=== PATIENT | female | born 1985 | race Two or more races ===

== ENCOUNTER 2022-11-09 01:07 | Inpatient (IN) | payer BC ==
[2022-11-09 01:32] VITALS: BMI 26.2
[2022-11-09] MEDS ORDERED: Lidocaine 1% (PF) 30 ML VIAL SC PRN (02:09)
[2022-11-09] MEDS ORDERED: Ondansetron PF 4 MG/2 ML Vial IVP PRN ×3 (02:09→20:46)
[2022-11-09] MEDS ORDERED: Diphenoxylate HCl/Atropine Tablet PO PRN (02:09)
[2022-11-09] MEDS ORDERED: Tranexamic Acid 1,000 MG/10 ML VIAL IVP PRN (02:09)
[2022-11-09] MEDS ORDERED: Methylergonovine 0.2 MG/ML VIAL IM PRN (02:09)
[2022-11-09] MEDS ORDERED: Carboprost 250 MCG/ML AMP IM PRN (02:09)
[2022-11-09] MEDS ORDERED: hydrALAZINE 20 MG/ML VIAL SLOW IVP PRN ×2 (02:09→20:46)
[2022-11-09] MEDS ORDERED: Promethazine HCl 25 MG/ML VIAL IM PRN ×2 (02:09→04:12)
[2022-11-09] MEDS ORDERED: Fentanyl 100 MCG/2 ML VIAL SLOW IVP PRN (02:09)
[2022-11-09] MEDS ORDERED: Misoprostol 200 MCG TAB PR PRN (02:09)
[2022-11-09] MEDS ORDERED: NS w/ Oxytocin 30 units 500 ML IV SCH ×2 (02:15)
[2022-11-09] MEDS: Lactated Ringer's 1,000 ML IV SCH ×2 (03:10→04:08)
[2022-11-09 03:16] LABS: Hemoglobin 11.4 g/dL (12.0-15.5); Mean Corpuscular HGB CONC 32.6 g/dL (32.0-36.0); Mean Corpuscular Hemoglobin 28.3 pg (27.0-33.0); Mean Corpuscular Volume 86.8 fl (81.6-98.3); Mean Platelet Volume 10.9 fl (7.4-10.4); Platelet Count 285 10x3/uL (150-450); RBC Distribution Width 14.9 % (11.5-14.5); Red Blood Cell (RBC) Count 4.03 10x6/uL (3.90-5.03); White Blood Cell (WBC) Count 9.7 10x3/uL (3.5-10.5)
[2022-11-09] MEDS ORDERED: Fentanyl 2 mcg/Bup 0.1% Cadd 100 ML ONE (03:36)
[2022-11-09 03:49] LABS: HBSAg Index 0.16 S/CO (0-0.99); Hep B Surf Ag - L&D Non-Reactive S/CO (NonReactive)
[2022-11-09 03:51] LABS: Syphilis Antibody Nonreactive (Nonreactive); Syphilis Antibody Index 0.05 S/CO (<1.00 Non-Reactive)
[2022-11-09] MEDS ORDERED: Naloxone HCl 0.4 mg/ml Vial IVP PRN ×2 (04:12)
[2022-11-09] MEDS ORDERED: Moisturizing Cream (Eucerin) 113 GM JAR TOP PRN (04:12)
[2022-11-09] MEDS ORDERED: diphenhydrAMINE 50 MG/ML VIAL IVP PRN (04:12)
[2022-11-09] MEDS ORDERED: ePHEDrine Sulfate 50 MG/10 ML VIAL SLOW IVP PRN (04:12)
[2022-11-09] MEDS ORDERED: Lactated Ringer's 500 ML IV PRN (04:12)
[2022-11-09] MEDS ORDERED: Fentanyl 2 mcg/Bupivacaine 0.1% Cassette 100 ML EPIDURAL SCH (04:15)
[2022-11-09] MEDS ORDERED: Communication Order-Pharmacy FS SCH (04:15)
[2022-11-09] MEDS ORDERED: Bupivacaine 0.25% HCL 30 ML VIAL ONE (08:00)
[2022-11-09] MEDS: Acetaminophen 325 MG TAB PO PRN ×2 (08:53→18:03)
[2022-11-09] MEDS ORDERED: Milk Of Magnesia 30 ML UDCUP PO PRN (20:46)
[2022-11-09] MEDS ORDERED: Benzocaine-Menthol 82.5 ML CAN TOP PRN (20:46)
[2022-11-09] MEDS ORDERED: Preparation H Ointment 28 GM TUBE PR PRN (20:46)
[2022-11-09] MEDS ORDERED: Boostrix 0.5 ML (Tdap) VIAL (>/=7 yrs of age) IM ONE (20:46)
[2022-11-09] MEDS ORDERED: HYDROcodone/Acetaminophen 5/325 mg Tablet PO PRN (20:46)
[2022-11-09] MEDS ORDERED: diphenhydrAMINE 25 MG CAP PO PRN (20:46)
[2022-11-09] MEDS ORDERED: Bisacodyl 10 MG SUPP PR PRN (20:46)
[2022-11-09] MEDS: Ibuprofen 800 MG TAB PO SCH (21:27)
[2022-11-09] MEDS: Docusate 100 MG CAP PO SCH (21:27)
[2022-11-10] MEDS: Ibuprofen 800 MG TAB PO SCH ×3 (05:13→21:08)
[2022-11-10] MEDS: Lactated Ringer's 1,000 ML IV SCH (07:44)
[2022-11-10] MEDS: Ferrous Sulfate 325 MG TAB PO SCH ×2 (07:44→13:50)
[2022-11-10] MEDS: Prenatal Vitamin 1 TAB PO SCH (08:17)
[2022-11-10] MEDS: Docusate 100 MG CAP PO SCH ×2 (08:17→21:08)
[2022-11-10] MEDS: HYDROcodone/Acetaminophen 5/325 mg Tablet PO PRN ×2 (13:17→18:17)
[2022-11-11] MEDS: HYDROcodone/Acetaminophen 5/325 mg Tablet PO PRN ×2 (02:23→10:14)
[2022-11-11] MEDS: Ibuprofen 800 MG TAB PO SCH ×2 (05:15→13:11)
[2022-11-11] MEDS: Ferrous Sulfate 325 MG TAB PO SCH ×2 (07:00→07:01)
[2022-11-11] MEDS: Prenatal Vitamin 1 TAB PO SCH (08:07)
[2022-11-11] MEDS: Docusate 100 MG CAP PO SCH (08:07)
[2022-11-11 08:10] VITALS: BP 110/51; TEMP 98.6
== END 2022-11-11 13:20 | disposition home or self-care (01) | DRG 806 ==
LOC: CSHLD/OP 01:07 → CSHLD 03:22 → CSHPP 20:04
PROVIDERS: ADMIT Student in an Organized Health Care Education/Training Program; ATTEND Student in an Organized Health Care Education/Training Program
PROC: 10E0XZZ Delivery of Products of Conception, External Approach (ICD-10-PCS; principal; 2022-11-09)
PROC: 0KQM0ZZ Repair Perineum Muscle, Open Approach (ICD-10-PCS; 2022-11-09)
DX: O42.02 Full-term premature rupture of membranes, onset of labor within 24 hours of rupture (principal); Z37.0 Single live birth; Z3A.40 40 weeks gestation of pregnancy; O70.1 Second degree perineal laceration during delivery; O98.52 Other viral diseases complicating childbirth; B00.9 Herpesviral infection, unspecified; O77.0 Labor and delivery complicated by meconium in amniotic fluid; O99.02 Anemia complicating childbirth; D64.9 Anemia, unspecified; O35.8XX0 Maternal care for other (suspected) fetal abnormality and damage, not applicable or unspecified; Z79.899 Other long term (current) drug therapy
CPT/HCPCS: 36415; 51702; 85027; 86780; 86850; 86900; 86901; 87340; 99285; J2590; J7120; S0020